=== PATIENT | male | born 2000 | race Caucasian/White ===

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

== ENCOUNTER 2021-02-04 10:16 | Emergency (ER) | payer SELFPAY ==
--- NOTE | 2021-02-04 10:20 | ED.GENADULT ---
HPI - General Adult General Chief complaint: Toxicology Problem Stated complaint: Increased HR after smoking pot Time Seen by Provider: 02/04/21 10:19 History of Present Illness HPI narrative: 21-year-old gentleman 1st experience with marijuana and having slightly anxious but significantly tachycardic. Brought in by medics for further evaluation He describes no significant medical history and no significant experience with marijuana. He currently is on no other medications and does not have a history of panic attacks or anxiety. Related Data Previous Rx's Medication Instructions Recorded methocarbamol 500 mg PO HS PRN #30 tab 12/28/16 naproxen 500 mg PO BIDCC PRN #60 tab 12/28/16 Allergies Allergy/AdvReac Type Severity Reaction Status Date / Time No Known Drug Allergies Allergy Verified 02/04/21 10:31 Review of Systems Review of Systems Narrative: Pertinent positive and negative findings as per HPI Remainder of review of systems is otherwise unremarkable for Constitutional: Fevers, chills, weakness ENT: No sore throat, neck pain, ear pain CV: Chest pain, palpitations, dyspnea on exertion Respiratory: Cough, wheeze, dyspnea GI: Nausea, vomiting, diarrhea, change in bowel habits, black or bloody stools : Dysuria, hematuria, flank pain Patient History Social History Smoking Status: Never smoker Smoking Status: Never smoker alcohol intake frequency: other Substance Use Type: does not use Exam Narrative Exam Narrative: General: Healthy appearing, in no acute distress. Intoxicated with flat affect HEENT: Moist mucous membranes, normal sclera with reactive pupils, Respiratory: Lungs are clear to auscultation, no wheezing no rales no rhonchi. Full and symmetrical air movement Cardiac: Regular rate and rhythm no murmurs no bruits Abdomen: Soft, nontender, good bowel tones, no flank pain Skin: Warm and dry, no rashes Neurologic: Grossly neurologically intact with no obvious asymmetries or abnormalities Extremities: No trauma, well perfused Psych: Intoxicated in otherwise distracted but cooperative with fluent speech pattern Initial Vital Signs Initial Vital Signs: Vital Signs Pulse Rate 124 H 02/04/21 10:29 Respiratory Rate 16 02/04/21 10:29 Pulse Oximetry 99 02/04/21 10:29 Course Orders Ordered: Discontinued Medications Sodium Chloride (Normal Saline 0.9%) 1,000 mls @ 1,000 mls/hr IV BOLUS ONE Stop: 02/04/21 11:29 Last Infusion: 02/04/21 11:41 Dose: 0 mls/hr Documented by: Admin: 02/04/21 10:38 Dose: 1,000 mls/hr Documented by: HENRRY Lorazepam (Lorazepam 2 Mg/Ml Inj) 0.5 mg IV NOW ONE Stop: 02/04/21 10:31 Last Admin: 02/04/21 10:37 Dose: 0.5 mg Documented by: HENRRY Vital Signs Vital signs: Vital Signs - 8 hr 02/04/21 10:29 02/04/21 10:30 02/04/21 10:33 Temperature 97.4 F L Pulse Rate 124 H 123 H 138 H Respiratory Rate 16 20 12 Blood Pressure 109/59 L 129/72 Pulse Oximetry 99 97 100 02/04/21 11:00 02/04/21 11:30 Temperature Pulse Rate 84 77 Respiratory Rate 12 12 Blood Pressure 114/71 111/71 Pulse Oximetry 100 100 Medical Decision Making Medical Records Medical records reviewed: Yes I reviewed the patient's medical records. MDM Narrative Medical decision making narrative: 21-year-old gentleman who was smoking marijuana this morning became quite anxious with significant tachycardia and called 911. On arrival he appears intoxicated with marijuana but is having no other acute medical issues. He is given a L of IV fluid in 0.5 mg of IV Ativan and observed for an hour and a half. Significantly improved. He is safe for home discharge at this time. Discharge Plan Departure Patient Disposition: Home Clinical Impression: Adverse effect of cannabis Qualifiers: Encounter type: initial encounter Qualified Code(s): T40.7X5A - Adverse effect of cannabis (derivatives), initial encounter Instructions: DI for Adverse Drug Reaction -- Other Activity Restrictions/Additional Instructions: Thank you for coming in today There are a number of people that have similar adverse reactions to marijuana. This clearly is not going to be a recreational drug that is going to be beneficial for you to use. It will wear off over the course of the day in you should return to normal. If you have new or worsening symptoms please return to the emergency department Prescriptions: No Action methocarbamol 500 MG tablet 500 mg PO HS PRNQty: 30 RF: 1 naproxen 500 MG tablet 500 mg PO BIDCC PRNQty: 60 RF: 1
[2021-02-04 10:29] VITALS: PULSE 124; RESP 16; O2SAT 99
[2021-02-04 10:30] VITALS: BP 109/59; PULSE 123; RESP 20; O2SAT 97
[2021-02-04 10:33] VITALS: BP 129/72; PULSE 138; RESP 12; TEMP 36.3; O2SAT 100; BMI 25.7
[2021-02-04] MEDS: LORazepam 2 MG/ML INJ 0.5 MG IV (10:37)
[2021-02-04] MEDS: SODIUM CHLORIDE 0.9% 1,000 ML 1000 ML IV (10:38)
[2021-02-04 11:00] VITALS: BP 114/71; PULSE 84; RESP 12; O2SAT 100
--- NOTE | 2021-02-04 11:14 | PC.NURSE ---
Patient intermittently holds his breathe because he's high. When he's reoriented to take a deep breathe he listens and continues to breathe normally.
[2021-02-04 11:30] VITALS: BP 111/71; PULSE 77; RESP 12; O2SAT 100
[2021-02-04 12:11] VITALS: BP 112/73; PULSE 108; RESP 23; O2SAT 100
== END 2021-02-04 12:12 | disposition home or self-care (01) ==
PROVIDERS: Emergency Provider Emergency Medicine
DX: R00.0 Tachycardia, unspecified (principal); F41.1 Generalized anxiety disorder; T40.7X5A Adverse effect of cannabis (derivatives), initial encounter
CPT/HCPCS: 96361; 96374; 99284; J2060

== ENCOUNTER → 2022-07-01 13:08 | Outpatient (CLI) | payer OTHER, SELFPAY ==
--- NOTE | 2022-07-01 13:11 | DI.RAD.S_ITS ---
PROCEDURE: XR CHEST 2V INDICATIONS: Respiratory difficulty TECHNIQUE: 2 views of the chest were acquired. COMPARISON: None. FINDINGS: Surgical changes and devices: None. Lungs and pleura: Lungs are clear. No pleural effusions or pneumothorax. Mediastinum: Mediastinal contours are normal. Heart size is normal. Bones and chest wall: No suspicious bony abnormalities. Soft tissues appear unremarkable. IMPRESSION: No acute cardiopulmonary abnormality. Dictated by: Silvio Crane M.D. on 07/01/2022 at 13:52 Approved by: Silvio Crane M.D. on 07/01/2022 at 13:52
== END ==
PROVIDERS: PCP Family Medicine; Referring Provider Registered Nurse; Visit Provider Registered Nurse
DX: R05.9 Cough, unspecified (principal)
CPT/HCPCS: 71046

== ENCOUNTER → 2022-07-01 14:05 | Outpatient (CLI) | payer OTHER, SELFPAY | PROVIDERS: PCP Family Medicine; Visit Provider Registered Nurse | DX: R68.83 Chills (without fever) (principal); R05.9 Cough, unspecified | CPT/HCPCS: 71046; 87086 ==

== ENCOUNTER → 2022-08-18 15:21 | Outpatient (CLI) | payer OTHER, SELFPAY | PROVIDERS: PCP Family Medicine; Referring Provider Internal Medicine; Visit Provider Internal Medicine | DX: Z23 Encounter for immunization (principal) | CPT/HCPCS: 90471; 90686 ==

== ENCOUNTER 2022-08-19 21:22 | Emergency (ER) | payer OTHER, SELFPAY ==
[2022-08-19 21:26] VITALS: BP 145/90; PULSE 128; RESP 18; TEMP 36.9; O2SAT 100; BMI 31.3
--- NOTE | 2022-08-19 23:31 | ED_ITS ---
HPI - General Adult General Chief complaint: Extremity Injury, Upper Stated complaint: CUT ARM LEFT Time Seen by Provider: 08/19/22 23:27 Source: patient Mode of arrival: Ambulatory History of Present Illness HPI narrative: Patient is a 22 year old female who is here for evaluation of a cut to her left wrist. She did cut her wrist purposefully. It was not in an attempt to kill herself. She is cut herself in the past when she becomes very anxious and that is what happened this evening. She went and told her mom afterwards. She denies ingesting alcohol or illicit substances. She is never cut her wrists in the past. Related Data Previous Rx's Medication Instructions Recorded methocarbamol 500 mg tablet 500 mg PO HS PRN #30 tabs 12/28/16 naproxen 500 mg tablet 500 mg PO BIDCC PRN #60 tabs 12/28/16 phenazopyridine 200 mg tablet 200 mg PO TID PRN pain 6 doses #6 07/01/22 (Pyridium) tabs lorazepam 0.5 mg tablet (Ativan) 0.5 mg PO BEDTIME PRN anxiety #7 08/19/22 tabs Allergies Allergy/AdvReac Type Severity Reaction Status Date / Time No Known Drug Allergies Allergy Verified 12/26/21 12:00 Review of Systems Musculoskeletal Musculoskeletal: Reports system reviewed and no additional complaints, except as documented Integumentary/Breasts Skin/Breast: Reports system reviewed and no additional complaints, except as documented Neurologic Neurologic: Reports system reviewed and no additional complaints, except as documented Hematologic/Lymphatic On Anticoagulants: No Patient History Social History Smoking Status: Never smoker Smoking Status: Never smoker alcohol intake frequency: other Substance Use Type: does not use Exam Initial Vital Signs Initial Vital Signs: Vital Signs Temperature 98.5 F 08/19/22 21:26 Pulse Rate 128 H 08/19/22 21:26 Respiratory Rate 18 08/19/22 21:26 Blood Pressure 145/90 H 08/19/22 21:26 Pulse Oximetry 100 08/19/22 21:26 Oxygen Delivery Method 08/19/22 21:26 HENNY Head: normal to inspection Cardio Pulses: radial pulses present on the left Skin Other: 4 cm laceration on the volar aspect of the left wrist. No active bleeding. Neuro Sensory Exam: no sensory deficits noted Extrem General: normal to inspection and capillary refill normal Psych Other: Not suicidal, not homicidal Procedures Laceration Repair Laceration 1: Site: upper extremity Side (If applicable): left Size (cm): 4 Description: linear Depth: simple, single layer Local Anesthetic: bupivacaine 0.25% Amount of anesthesia used (mL): 4 Pre-repair: wound explored, irrigated extensively and deep structures intact Skin layer closed with: nylon Skin layer suture size: 5-0 Number of sutures: 4 Course Orders Ordered: Discontinued Medications Bacitracin (Bacitracin Oint 0.9 Gm Pckt) 1 applic TOP NOW ONE Stop: 08/19/22 23:52 Last Admin: 08/19/22 23:57 Dose: 1 applic Documented By: JAMIA Diphtheria/Tetanus/Acell Pertussis (Tet,Diph,Pertuss(Acell),Vac/Pf 0.5 Ml Syringe) 0.5 ml IM .ONCE ONE Stop: 08/19/22 23:32 Last Admin: 08/19/22 23:57 Dose: 0.5 ml Documented By: JAMIA Lorazepam (Lorazepam 0.5 Mg Tablet) 1 mg PO NOW ONE Stop: 08/19/22 23:52 Last Admin: 08/19/22 23:57 Dose: 1 mg Documented By: JAMIA Vital Signs Vital signs: Vital Signs - 8 hr 08/19/22 21:26 08/20/22 00:07 Temperature 98.5 F Pulse Rate 128 H Respiratory Rate 18 78 H Blood Pressure 145/90 H 115/65 Pulse Oximetry 100 100 Oxygen Delivery Method Room Air Room Air Medical Decision Making [facility] Narrative Medical decision making narrative: Patient cut her left wrist because of the anxiety that she was having and she is not suicidal and not homicidal. She is safe going home. She is with her mother who can be with her this evening. Wound was closed as described above. Will prescribe Ativan to try to help her sleep tonight and also for the anxiety. They were given return precautions. They expressed understanding and agreement. Discharge Plan Departure Patient Disposition: Home Clinical Impression: Laceration, Anxiety Instructions: DI for Laceration Repair -- Simple, DI for Anxiety -- Adult Activity Restrictions/Additional Instructions: The stitches do need to be removed in the next 7-10 days. Either your primary doctor or the walk-in clinic and do this. Until then you can cover with a bandage and antibiotic ointment. Keep your scheduled appointment with your therapist on Sunday. Return to the emergency department for any new or worsening symptoms. Prescriptions: New lorazepam [Ativan] 0.5 mg tablet 0.5 mg PO BEDTIME PRN (Reason: anxiety) Qty: 7 0RF No Action phenazopyridine [Pyridium] 200 mg tablet 200 mg PO TID PRN (Reason: pain) Qty: 6 0RF methocarbamol 500 MG tablet 500 mg PO HS PRNQty: 30 1RF naproxen 500 MG tablet 500 mg PO BIDCC PRNQty: 60 1RF Referrals: Doyle Díaz DO [Primary Care Provider] - Visit Report Forms: Patient Portal/API
[2022-08-19] MEDS: LORazepam 0.5 MG TABLET 1 MG PO (23:57)
[2022-08-19] MEDS: BACITRACIN OINT 0.9 GM PCKT 1 APPLIC TOP (23:57)
[2022-08-19] MEDS: TET,DIPH,PERTUSS(ACELL),VAC/PF 0.5 ML SYRINGE IM (23:57)
[2022-08-20 00:07] VITALS: BP 115/65; RESP 78; O2SAT 100
== END 2022-08-20 00:08 | disposition home or self-care (01) ==
PROVIDERS: Emergency Provider Emergency Medicine; PCP Family Medicine
DX: S61.512A Laceration without foreign body of left wrist, initial encounter (principal); R45.88 Nonsuicidal self-harm; F41.9 Anxiety disorder, unspecified; Z23 Encounter for immunization
CPT/HCPCS: 12002; 90471; 99284; 90715

== ENCOUNTER → 2022-09-25 08:57 | Outpatient (CLI) | payer OTHER, SELFPAY ==
--- NOTE | 2022-09-25 08:59 | DI.MG.S_ITS ---
MALE BILATERAL DIGITAL DIAGNOSTIC MAMMOGRAM 3D/2D: 09/25/2022 CLINICAL: Bloody discharge. Baseline. Comparison is made to exam dated: 09/25/[address] [facility]. There is heterogeneous fibroglandular tissue bilaterally. Patient reports history of hormone replacement therapy. No significant masses, calcifications, or other findings are seen in either breast. IMPRESSION: BENIGN There is no mammographic evidence of malignancy. No mass seen. No dilated ducts on ultrasound. Bilateral fibroglandular tissue is similar and benign. Patient reports minimal discharge. Exam findings were conveyed to the patient. Patient is advised to monitor for significant change. Clinical follow-up is recommended. If symptoms worsen, recommend breast MRI. Consider screening mammogram commencing at age 50. This exam was interpreted at Station ID: [id number]. NOTE: For mammograms, a report in lay terms will be sent to the patient. Approximately 15% of breast malignancies will not be visualized mammographically. In the management of a palpable breast mass, a negative mammogram must not discourage biopsy of a clinically suspicious lesion. Electronically Signed By: Lacho Trejo M.D. slc/:09/25/2022 10:35:14 letter sent: Clinical Evaluation ACR BI-RADS Category 2: Benign Finding(s) 3342F
--- NOTE | 2022-09-25 08:59 | DI.US.S_ITS ---
LIMITED ULTRASOUND OF RIGHT BREAST AND AXILLA: 09/25/2022 CLINICAL: Bloody right nipple discharge. 22yo transitioning from male to female. No prior exams were available for comparison. Color flow and real-time ultrasound of the right breast retroareolar and axilla regions were performed. Neal scale images of the real-time examination were reviewed. There is a 2.9 cm irregular area of fibroglandular tissue in the right breast central to the nipple in the retroareolar region. This irregular area of fibroglandular tissue is hypoechoic. This correlates with the bloody nipple discharge. Color flow imaging demonstrates that there is increased vascularity. No significant abnormalities were seen sonographically in the right axilla. IMPRESSION: INCOMPLETE: NEEDS ADDITIONAL IMAGING EVALUATION The 2.9 cm irregular area of fibroglandular tissue in the right breast resembles gynecomastia. A diagnostic mammogram is recommended and will immediately follow. No enlarged right axillary lymph nodes. This exam was interpreted at Station ID: [id number]. Electronically Signed By: Lacho Trejo M.D. slc/:09/25/2022 10:05:37 Ultrasound BI-RADS: 0 Indeterminate
== END ==
PROVIDERS: Referring Provider Family Medicine; Visit Provider Family Medicine
DX: N64.52 Nipple discharge (principal); R92.8 Other abnormal and inconclusive findings on diagnostic imaging of breast
CPT/HCPCS: 76642; 77066; G0279